=== PATIENT | female | born 1990 | race Caucasian/White ===

== ENCOUNTER 2021-06-15 05:11 | Inpatient (IN) | payer OTHER ==
[~2021-06-15] VITALS: Ht 162.6 cm; Wt 110.2 kg
[2021-06-15 07:13] LABS: HEMOGLOBIN 7.8 gm/dl (12.3-15.3); RED BLOOD COUNT 3.07 M/UL (4.00-5.10); WHITE BLOOD COUNT 10.5 K/UL (4.5-11.0)
[2021-06-15] MEDS ORDERED: LEVOTHYROXINE125 MC1 PO (07:33)
[2021-06-15] MEDS ORDERED: IBUPROFEN600 MG PO (08:17)
[2021-06-15] MEDS ORDERED: DOCUSATE SODIU100 MG PO (08:17)
[2021-06-15] MEDS ORDERED: HYDROCODON-ACE1 EAC4 PO (08:17)
[2021-06-16 05:57] LABS: HEMOGLOBIN 7.7 gm/dl (12.3-15.3)
== END 2021-06-16 17:34 | disposition home or self-care (01) | DRG 788 ==
LOC: GENOP 05:11 → OB 06:15
PROVIDERS: Obstetrics & Gynecology; ADMIT Obstetrics & Gynecology
PROC: 10D00Z1 Extraction of Products of Conception, Low, Open Approach (ICD-10-PCS; principal; 2021-06-15 08:21)
PROC: 4A1HXCZ Monitoring of Products of Conception, Cardiac Rate, External Approach (ICD-10-PCS; principal; 2021-06-15 08:21)
DX: O42.92 Full-term premature rupture of membranes, unspecified as to length of time between rupture and onset of labor (principal); O34.219 Maternal care for unspecified type scar from previous cesarean delivery; Z37.0 Single live birth; Z3A.37 37 weeks gestation of pregnancy; O99.284 Endocrine, nutritional and metabolic diseases complicating childbirth; E03.9 Hypothyroidism, unspecified; Z20.822 Contact with and (suspected) exposure to COVID-19; O69.81X0 Labor and delivery complicated by cord around neck, without compression, not applicable or unspecified
CPT/HCPCS: 36415; 81001; 82800; 83518; 85014; 85018; 85025; 86850; 86900; 86901; C9113; J0690; J1580; J1885; J2274; J2300; J2405; J2590; J3010; J7120; U0002